=== PATIENT | male | born 1985 | race Caucasian/White ===

== ENCOUNTER → 2022-10-31 15:06 | Outpatient (BNVA) | payer BC, SELFPAY | PROVIDERS: PCP Family Medicine; Visit Provider Family Medicine | DX: B18.2 Chronic viral hepatitis C (principal) | CPT/HCPCS: 85025 ==

== ENCOUNTER → 2022-11-09 12:26 | Outpatient (BNVA) | payer BC, SELFPAY | PROVIDERS: PCP Family Medicine; Visit Provider Family Medicine | DX: B18.2 Chronic viral hepatitis C (principal) | CPT/HCPCS: 80053; 82977; 84443; 85025; 85610; 86803; 87522; 87806; 87902 ==